=== PATIENT | female | born 1970 | race Caucasian/White ===

== ENCOUNTER 2023-06-06 08:48 | Outpatient (REF) | payer OTHER, SELFPAY | END 2023-06-06 08:49 | disposition home or self-care (01) | LOC: NFLDREF 08:48 | PROVIDERS: PCP Family Medicine; Referring Provider Family Medicine; Visit Provider Family Medicine | DX: Z00.00 Encounter for general adult medical examination without abnormal findings (principal); R07.9 Chest pain, unspecified | CPT/HCPCS: 80053; 80061; 82652; 84443 ==

== ENCOUNTER 2023-06-07 14:38 | Outpatient (CLI) | payer OTHER, SELFPAY ==
--- NOTE | 2023-06-07 14:59 | W.PM.STED ---
Stress Test Note Date Date Seen: 06/07/23 Date of test: 06/07/23 Providers Primary care provider: Asa Evans Stress test physician: Gail Bearden Stress Test Note Stress test ordered: Stress Echo Indication for test: Chest pain Stress test medicine: None Results discussion: Resting EKG: Sinus rhythm, 79 beats per minute. Resting blood pressure: 128/74 Stress test: Patient was exercised on the treadmill following standard Yoan protocol. Patient exercised to 9 minutes 49 seconds, stopping due to reaching exercise capacity. This is consistent with 11.3 Mets. She had a maximum heart rate of 193 beats per minute which was 136% of a target calculated heart rate of 141. She had a maximum blood pressure during exercise of 168/90, given a rate pressure product of 32,424. There was no arrhythmia, no evidence of ischemia. Patient had of fleeting sharp chest pain during stage I which did not reoccur or last. She was asymptomatic during the remainder of the stress test. Will await the echo images to couple this for a full formal diagnostic test. Impression: Likely subjectively negative, definitely objectively negative EKG portion of this stress test. Follow up suggested: Will await the echo images to couple this for a full formal diagnostic. Patient was discharged from the stress test in stable condition.
[2023-06-07 15:36] VITALS: BP 134/80; PULSE 106; RESP 18
== END 2023-06-07 15:58 | disposition home or self-care (01) ==
LOC: STRESS 14:39
PROVIDERS: PCP Family Medicine; Visit Provider Family Medicine
DX: R07.9 Chest pain, unspecified (principal)
CPT/HCPCS: 93016; 93325; 93351